=== PATIENT | male | born 1970 | race Caucasian/White ===

== ENCOUNTER 2018-09-12 19:24 | Inpatient (IN) | payer OTHER ==
[~2018-09-12] VITALS: Ht 167.6 cm; Wt 81.3 kg
[~2018-09-12 19:24] MED LIST: Bactrim Ds Tab1 EACH PO; CEPH500 PO; CIPR500 PO; CYCL10 PO; IBUP600 PO; Monodox100 MG PO; Norco 5-325 Ta1 EACH PO; TOBDEXOPSU RIGHTEYE
[2018-09-12 20:51] LABS: BASOPHILS ABSOLUTE AUTO 0.02 K/mm3 (0.00-0.23); BASOPHILS PERCENT AUTO 0 % (0-2); EOSINOPHILS ABSOLUTE AUTO 0.18 K/mm3 (0.00-0.68); EOSINOPHILS PERCENT AUTO 2 % (0-6); Hematocrit 43.2 % (37.0-53.0); Hemoglobin 13.9 g/dL (13.5-17.5); IMMATURE GRAN ABSOLUTE AUTO 0.03 K/mm3 (0.00-0.10); IMMATURE GRAN PERCENT AUTO 0 % (0-1); LYMPHOCYTES ABSOLUTE AUTO 1.52 K/mm3 (0.84-5.20); LYMPHOCYTES PERCENT AUTO 18 % (21-46); MONOCYTES ABSOLUTE AUTO 0.65 K/mm3 (0.16-1.47); MONOCYTES PERCENT AUTO 8 % (4-13); Mean Corpuscular HGB 28.4 pg (26.0-34.0); Mean Corpuscular HGB Conc 32.2 g/dL (31.5-36.5); Mean Corpuscular Volume 88 fL (80-100); Mean Platelet Volume 9.6 fL (9.1-12.4); NEUTROPHILS ABSOLUTE AUTO 5.87 K/mm3 (1.96-9.15); NEUTROPHILS PERCENT AUTO 71 % (41-73); Platelet Count 299 K/mm3 (150-400); RDW Coefficient Variation 12.6 % (11.7-14.2); RDW Standard Deviation 41.3 fL (35.1-46.3); Red Blood Cell Count 4.89 M/mm3 (4.30-5.90); White Blood Cell Count 8.27 K/mm3 (4.00-11.30)
[2018-09-12 21:10] LABS: Alanine Aminotransfer (ALT/SGP 29 U/L (12-78); Albumin, Blood 3.8 g/dL (3.4-5.0); Albumin/Globulin Ratio 0.9 (0.8-1.8); Alk Phos 129 U/L (50-136); Anion Gap 4 mmol/L (6-16); Aspartate Aminotrans (AST/SGOT 14 U/L (12-37); Bilirubin, Total 0.2 mg/dL (0.1-1.0); Blood Urea Nitrogen 25 mg/dL (8-24); Bun/Creatinine Ratio 26.7 (12.0-20.0); CO2, Blood 30 mmol/L (21-32); Chloride, Blood 105 mmol/L (98-108); Creatinine, Blood 0.94 mg/dL (0.60-1.20); Globulin, Blood 4.1 g/dL (2.2-4.0); Glomerular Filtration Rate >60 (60-); Glucose, Blood 99 mg/dL (70-99); Potassium, Blood 4.5 mmol/L (3.5-5.5); Sodium, Blood 139 mmol/L (136-145); Total Protein, Blood 7.9 g/dL (6.4-8.2)
--- NOTE | 2018-09-12 23:55 | NUR ---
2240 PT ADMITTED TO ROOM 334 PER WHEELCHAIR FROM ER.
[2018-09-13 05:15] LABS: Hematocrit 42.8 % (37.0-53.0); Hemoglobin 13.5 g/dL (13.5-17.5); Mean Corpuscular HGB Conc 31.5 g/dL (31.5-36.5); Mean Corpuscular Volume 89 fL (80-100); Mean Platelet Volume 9.9 fL (9.1-12.4); Platelet Count 297 K/mm3 (150-400); RDW Coefficient Variation 12.6 % (11.7-14.2); RDW Standard Deviation 41.2 fL (35.1-46.3); Red Blood Cell Count 4.83 M/mm3 (4.30-5.90)
[2018-09-13 05:53] LABS: Anion Gap 6 mmol/L (6-16); Blood Urea Nitrogen 23 mg/dL (8-24); Bun/Creatinine Ratio 26.1 (12.0-20.0); CO2, Blood 27 mmol/L (21-32); Calcium, Blood 8.9 mg/dL (8.5-10.1); Chloride, Blood 106 mmol/L (98-108); Creatinine, Blood 0.88 mg/dL (0.60-1.20); Glomerular Filtration Rate >60 (60-); Glucose, Blood 107 mg/dL (70-99); Potassium, Blood 4.4 mmol/L (3.5-5.5); Sodium, Blood 139 mmol/L (136-145)
--- NOTE | 2018-09-13 07:55 | NUR ---
PT PLEASANT COOP A/O. STATES IS WORKING FOR [employer]. STATES GOT NAIL IN FOOT MONTH AGO AND JUST TOUGHED IT OUT. HAS BUMP ON BOTTOM OF LEFT FOOT. DENIES PAIN EXCEPT SOME WHEN WALKING. H/R REG, NO MURMER NOTED. NO TELE. LUNGS CLEAR, RESP EASY, UNLABORED ON R.A. BT 4 LAST BM YEST. VOIDS PER BATHROOM. INDEPENDANT TO BATHROOM. DID WELL. NO OTHER CONCERNS AT THIS TIME. BED IN LOW POSITION, CALL LITE IN REACH, CALLS APPROP
[2018-09-13 18:31] LABS: U Amphetamine Screen DETECTED; U Barbituate Screen Not Detected; U Benzodiazapine Screen Not Detected; U Buprenorphine Screen Not Detected; U Cannabinoids Screen Not Detected; U Cocaine Screen Not Detected; U Methadone Screen Not Detected; U Methamphetamine Screen DETECTED; U Opiates Screen DETECTED; U Oxycodone Screen Not Detected; U Phencyclidine Screen Not Detected; U Propoxyphene Screen Not Detected
--- NOTE | 2018-09-13 18:35 | NUR ---
PT PLEASANT TODAY. PODIATRY IN TO SEE TODAY. STATES I & D TOMORROW, HOPEFUL FOR AM. NPO MIDNITE. NO OTHER CONCERNS AT THIS TIME. BED IN LOW POSITION,C ALL LITE IN REACH, CALLS APPROP
[2018-09-13 20:26] LABS: Vancomycin, Trough 8.1 ug/mL (5.0-10.0)
--- NOTE | 2018-09-14 04:36 | NUR ---
PT HAD AN UNEVENTFUL SHIFT. PT REMAINED ALERT, ORIENTED, AND INDEPENDENT. NPO AFTER DINNER. NO COMPLAINTS OF PAIN FROM PT. PT RECIEVED ANTIBIOTICS VIA IV ORDERED. PT SAFETY MAINTAINED. WILL CONTINUE TO MONITOR.
[2018-09-14 05:30] LABS: BASOPHILS ABSOLUTE AUTO 0.02 K/mm3 (0.00-0.23); BASOPHILS PERCENT AUTO 0 % (0-2); EOSINOPHILS PERCENT AUTO 2 % (0-6); Hematocrit 45.8 % (37.0-53.0); Hemoglobin 14.5 g/dL (13.5-17.5); IMMATURE GRAN ABSOLUTE AUTO 0.03 K/mm3 (0.00-0.10); IMMATURE GRAN PERCENT AUTO 0 % (0-1); LYMPHOCYTES ABSOLUTE AUTO 2.12 K/mm3 (0.84-5.20); LYMPHOCYTES PERCENT AUTO 25 % (21-46); MONOCYTES ABSOLUTE AUTO 0.65 K/mm3 (0.16-1.47); MONOCYTES PERCENT AUTO 8 % (4-13); Mean Corpuscular HGB 27.6 pg (26.0-34.0); Mean Corpuscular HGB Conc 31.7 g/dL (31.5-36.5); Mean Corpuscular Volume 87 fL (80-100); Mean Platelet Volume 9.7 fL (9.1-12.4); NEUTROPHILS ABSOLUTE AUTO 5.32 K/mm3 (1.96-9.15); NEUTROPHILS PERCENT AUTO 64 % (41-73); Platelet Count 309 K/mm3 (150-400); RDW Coefficient Variation 12.9 % (11.7-14.2); Red Blood Cell Count 5.26 M/mm3 (4.30-5.90); White Blood Cell Count 8.34 K/mm3 (4.00-11.30)
[2018-09-14 05:47] LABS: Anion Gap 6 mmol/L (6-16); Blood Urea Nitrogen 21 mg/dL (8-24); Bun/Creatinine Ratio 23.4 (12.0-20.0); CO2, Blood 27 mmol/L (21-32); Chloride, Blood 105 mmol/L (98-108); Glomerular Filtration Rate >60 (60-); Glucose, Blood 108 mg/dL (70-99); Potassium, Blood 4.5 mmol/L (3.5-5.5); Sodium, Blood 138 mmol/L (136-145)
--- NOTE | 2018-09-14 07:57 | NUR ---
PATIENT TAKEN TO DAY SURGERY FOR I&D OF L FOOT ABCESS.
--- NOTE | 2018-09-14 08:14 | NUR ---
History, Chart, Medications and Allergies reviewed before start of procedure. Lungs clear T/O to Auscultation. Patient confirms NPO status and agrees with scheduled surgery. Pre-Op teaching done. Pt verbalizes understanding.
--- NOTE | 2018-09-14 10:15 | NUR ---
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 VSS. PATIENT SLEEPING. WOUND C/D/I. LUNGS CLEAR."
--- NOTE | 2018-09-14 10:50 | NUR ---
PATIENT BACK IN ROOM FROM PACU. VSS, ON RA. PATIENT DENIES ANY PAIN OR NAUSEA. REMAINS DROWSY, BUT ABLE TO STAY AWAKE DURING ASSESSMENT. DRESSING TO L FOOT REMAINS C/D/I. PATIENT DENIES ANY CONCERNS AT THIS TIME. ISOLATION PRECAUTIONS INITITATED DUE TO MRSA IN WOUND.
--- NOTE | 2018-09-14 15:47 | NUR ---
PATIENT IS A/OX4, UP INDEPENDENTLY IN ROOM. I&D OF L FOOT ABCESS DONE THIS AM. POST SURGICAL DRESSING REMAINS C/D/I. VSS, PATIENT STARTED ON AMLODIPINE TO CONTROL HTN. DENIES ANY PAIN OR DISCOMFORT. VANCO AND BACTRIM ORDERED TO TREAT INFECTION. CALM AND COOPERATIVE WITH CARE AND CALLS APPROPRIATELY FOR ASSISTANCE.
[2018-09-14 20:31] LABS: Vancomycin, Trough 9.9 ug/mL (5.0-10.0)
[2018-09-15 05:13] LABS: BASOPHILS ABSOLUTE AUTO 0.02 K/mm3 (0.00-0.23); BASOPHILS PERCENT AUTO 0 % (0-2); EOSINOPHILS ABSOLUTE AUTO 0.02 K/mm3 (0.00-0.68); EOSINOPHILS PERCENT AUTO 0 % (0-6); Hematocrit 40.8 % (37.0-53.0); Hemoglobin 13.2 g/dL (13.5-17.5); IMMATURE GRAN ABSOLUTE AUTO 0.05 K/mm3 (0.00-0.10); IMMATURE GRAN PERCENT AUTO 0 % (0-1); LYMPHOCYTES ABSOLUTE AUTO 1.84 K/mm3 (0.84-5.20); LYMPHOCYTES PERCENT AUTO 12 % (21-46); MONOCYTES ABSOLUTE AUTO 1.01 K/mm3 (0.16-1.47); MONOCYTES PERCENT AUTO 7 % (4-13); Mean Corpuscular HGB 27.7 pg (26.0-34.0); Mean Corpuscular HGB Conc 32.4 g/dL (31.5-36.5); Mean Corpuscular Volume 86 fL (80-100); Mean Platelet Volume 9.7 fL (9.1-12.4); NEUTROPHILS ABSOLUTE AUTO 12.03 K/mm3 (1.96-9.15); NEUTROPHILS PERCENT AUTO 81 % (41-73); Platelet Count 309 K/mm3 (150-400); RDW Coefficient Variation 12.6 % (11.7-14.2); RDW Standard Deviation 39.4 fL (35.1-46.3); Red Blood Cell Count 4.77 M/mm3 (4.30-5.90); White Blood Cell Count 14.97 K/mm3 (4.00-11.30)
[2018-09-15 05:36] LABS: Anion Gap 7 mmol/L (6-16); Blood Urea Nitrogen 26 mg/dL (8-24); Bun/Creatinine Ratio 29.1 (12.0-20.0); CO2, Blood 25 mmol/L (21-32); Calcium, Blood 8.8 mg/dL (8.5-10.1); Chloride, Blood 104 mmol/L (98-108); Creatinine, Blood 0.89 mg/dL (0.60-1.20); Glomerular Filtration Rate >60 (60-); Glucose, Blood 105 mg/dL (70-99); Potassium, Blood 4.5 mmol/L (3.5-5.5); Sodium, Blood 136 mmol/L (136-145)
[2018-09-15] MEDS ORDERED: ACET325 PO (12:01)
[2018-09-15] MEDS ORDERED: Norvasc10 MG PO (12:03)
[2018-09-15] MEDS ORDERED: Florastor250 MG PO (12:05)
[2018-09-15] MEDS ORDERED: Bactrim Ds Tab1 EACH PO (12:05)
--- NOTE | 2018-09-15 12:20 | NUR ---
PATIENT D/C'D TO HOME. D/C INSTRUCTIONS AND EDUCATION DISCUSSED WITH PATIENT AND COPY PROVIDED. RX MEDICATIONS FAXED TO [facility]. PATIENT DENIES ANY FURTHER QUESTIONS OR CONCERNS. INSTRUCTED TO FOLLOW UP WITH DR. HURTADO AND OBTAIN A PCP.
== END 2018-09-15 12:34 | disposition home or self-care (01) | DRG 603 ==
LOC: ER 19:24 → MEDS 22:06 → ENPENDDIS 09-15 11:27 → MEDS 09-15 12:34
PROVIDERS: Emergency Medicine; Internal Medicine; Nurse Practitioner Acute Care; ADMIT Internal Medicine
PROC: 0H9LXZX Drainage of Left Lower Leg Skin, External Approach, Diagnostic (ICD-10-PCS; principal; 2018-09-12)
PROC: 3E0234Z Introduction of Serum, Toxoid and Vaccine into Muscle, Percutaneous Approach (ICD-10-PCS; 2018-09-12)
PROC: 0HDNXZZ Extraction of Left Foot Skin, External Approach (ICD-10-PCS; 2018-09-14)
DX: L02.612 Cutaneous abscess of left foot (principal); L03.116 Cellulitis of left lower limb; W45.0XXA Nail entering through skin, initial encounter; F17.210 Nicotine dependence, cigarettes, uncomplicated; I10 Essential (primary) hypertension; B95.62 Methicillin resistant Staphylococcus aureus infection as the cause of diseases classified elsewhere; S91.332A Puncture wound without foreign body, left foot, initial encounter; Y92.9 Unspecified place or not applicable
CPT/HCPCS: 10160; 36415; 73630; 73720; 80048; 80053; 80202; 83605; 85025; 85027; 85651; 86140; 87040; 87070; 87077; 87186; 87205; 90471; 90714; 96365-59; 96367-59; 99285-25; A9577; J1650; J1885; J2250; J2543; J2704; J3010; J3370; J7030; J7050; J7120

== ENCOUNTER 2022-06-16 08:48 | Emergency (ER) | payer OTHER ==
[~2022-06-16] VITALS: Ht 167.6 cm; Wt 86.2 kg
[~2022-06-16 08:48] MED LIST changes: +ACET325 PO; +Florastor250 MG PO; +Norvasc10 MG PO
[2022-06-16 08:50] VITALS: BP 177/105
== END 2022-06-16 08:59 | disposition left against medical advice (07) ==
LOC: ER 08:48
DX: T40.411A Poisoning by fentanyl or fentanyl analogs, accidental (unintentional), initial encounter (principal)
CPT/HCPCS: 99283